=== PATIENT | male | born 1950 | race Caucasian/White ===

== ENCOUNTER 2018-02-25 08:35 | Emergency (ER) | payer SELFPAY ==
[2018-02-25 08:44] VITALS: BP 205/138
[2018-02-25] MEDS ORDERED: CLINDAMYCIN 150 MG CAP PO ONE (09:14)
--- NOTE | 2018-02-25 09:31 | EDPHY ---
H & P Time Seen by Provider: 02/25/18 08:54 HPI/ROS: CLINICAL IMPRESSION: Periapical abscess, left upper teeth ASSESSMENT/PLAN: 67-YEAR-OLD male presents to the emergency department with 1 day of left cheek swelling associated with left upper dental pain. Patient has been symptomatic with dental pain for 3-4 days. No drooling, tongue swelling, dysphagia, shortness of breath, neck swelling. No clinical signs to suggest Octavio's angina, ANUG, gingival buccal abscess, facial cellulitis or facial abscess. Patient was started on oral clindamycin and encouraged to call dental 8 for follow-up appointment. Vital signs stable, afebrile, warning signs return to ED sooner alignment discharge. DIFFERENTIAL DX: Differential includes but not limited to gingival buccal abscess, facial cellulitis, facial abscess, periapical abscess, parotitis ED PROCEDURES: See lab and/or imaging results below Patient refused dental block CHIEF COMPLAINT: Left upper dental pain and left facial swelling HPI: 67-year-old male presents to the emergency department with 24 hr of left cheek and face swelling associated with 3 days of left upper dental pain. No reported dental trauma or broken teeth. Patient has not seen a dentist nor does he have a dentist. He is tolerating secretions well and has been able to stay well-hydrated. No neck swelling or difficulty swallowing. No history of previous cellulitis or abscess and no history of MRSA. Pain and swelling are not exacerbated by eating. No ocular involvement or vision changes. No reported fevers, chills, myalgias, nausea, vomiting. PAST MEDICAL HISTORY: None reported See triage summary and nurse notes for addition applicable history Pertinent Past Surgical History: None reported Family History: Noncontributory Social History: Daily smoker REVIEW OF SYSTEMS: A full 10 point review of systems was negative except for those mentioned in HPI. PHYSICAL EXAM: General Appearance: Alert, oriented, appropriate, cooperative, NAD, well hydrated, non-toxic appearing, VSS, no hypoxia. HEENT: TMs are clear bilaterally no perforation or FB, no injection, no evidence of serous or mucopurulent otitis. Oropharynx clear is no erythema or exudates, no tonsillar hypertrophy or asymmetry. Dental caries noted throughout , pain to palpation along the gingiva of the entire left upper maxilla. No fluctuance or drainable fluid collection. No evidence of ANUG, gingival buccal abscess. Swelling noted to left cheek associated with mild erythema. No warmth or fluctuance. No clinical signs of parotitis. Swelling does not extend below the mandible and there is no submental inflammation or suggestion of Octavio's angina. Neck: Supple, nontender, no lymphadenopathy, no midline pain, FROM, no meningismus. Respiratory: There are no retractions, lungs are clear to auscultation. Cardiac: Regular rate and rhythm, no murmurs or gallops. Skin: Warm, dry, no rashes, no nodules on palpation. MEDICAL DECISION MAKING: Patient was seen independently. Secondary supervising physician at time of evaluation was: Dr. Oviedo Diagnosis: Left upper dental periapical abscess, left facial swelling . New, requires workup Summary: See Assessment and Plan for summary of ED visit Clinical lab tests: Not obtained. Independent visualization of images, tracing, or specimens: Not obtained. Patient Progress: Stable. Smoking Status: Current every day smoker Constitutional: Initial Vital Signs Temperature (C) 36.6 C 02/25/18 08:41 Heart Rate 76 02/25/18 08:41 Respiratory Rate 18 02/25/18 08:41 Blood Pressure 205/138 H 02/25/18 08:41 O2 Sat (%) 94 02/25/18 08:41 O2 Delivery Mode Room Air Allergies/Adverse Reactions: No Known Allergies Allergy (Unverified 02/25/18 08:41) Home Medications: Medication Instructions Recorded Clindamycin 300 mg PO Q6 #28 cap 02/25/18 MDM/Departure - MDM Medications Given: Discontinued Medications Clindamycin (Clindamycin) 300 mg PO EDNOW ONE PRN Reason: Protocol Stop: 02/25/18 09:15 Last Admin: 02/25/18 09:19 Dose: 300 mg - Depart Disposition: Home, Routine, Self-Care Clinical Impression: Periapical abscess, Dentalgia Condition: Fair Instructions: Clindamycin (By mouth), Dental Abscess (ED) Additional Instructions: DISCHARGE INSTRUCTIONS FROM YOUR DOCTOR Thank you for visiting our emergency department today. Please keep in mind that discharge from the emergency department does not mean that there is nothing wrong - it simply means that we have not identified an emergency condition that requires further evaluation or treatment in the hospital. You should always plan to follow up with primary care for re-evaluation of your condition in the next 2-3 days. If you have been referred to a specialist, please call as soon as possible (today or tomorrow) to schedule your follow up appointment at the appropriate time. YOUR FACE IS LIKELY SWOLLEN REACTION TO A DENTAL ABSCESS. HE WILL NEED TO VISIT A DENTIST SOON POSSIBLE. YOU CAN CONTACT THE [facility] EMERGENCY NUMBER AT [phone] AND THEY CAN HELP ARRANGE A NEXT DAY APPOINTMENT. PLEASE LET THEM KNOW YOU WERE IN THE EMERGENCY DEPARTMENT. PLEASE FOLLOW UP WITH A PRIMARY CARE PROVIDER. IF YOU DO NOT HAVE ONE A REFERRAL WAS GIVEN. ANTIBIOTICS WERE PRESCRIBED. PLEASE TAKE PICTURES OF YOUR FACE TO MONITOR SWELLING AND REDNESS. RETURN TO THE EMERGENCY DEPARTMENT IMMEDIATELY FOR INCREASED FACIAL PAIN, SIGNIFICANT FACIAL SWELLING, WARMTH TO THE FACE, FEVERS GREATER THAN 100.4, NAUSEA, VOMITING, FEVERS, TROUBLE EATING, TONGUE SWELLING OR NECK SWELLING, OR ANY OTHER CONCERNS. People present with illnesses and injuries in different ways, and it is always possible that we have missed something. You may always return for re-evaluation if symptoms worsen or if they are not improving or if you develop new/different symptoms. Again, thank you for choosing our emergency department. We hope that you feel better. Prescriptions: Clindamycin 300 mg PO Q6 #28 cap Referrals: NONE *PRIMARY CARE P,. [Primary Care Provider] - As per Instructions [facility],. [Clinic] - As per Instructions
== END 2018-02-25 09:37 | disposition home or self-care (01) ==
DX: K04.7 Periapical abscess without sinus (principal)

== ENCOUNTER 2018-03-08 07:08 | Emergency (ER) | payer OTHER ==
--- NOTE | 2018-03-08 07:33 | EDPHY ---
H & P Time Seen by Provider: 03/08/18 07:33 HPI/ROS: Chief complaint. Cough, shortness of breath HPI. 67-year-old male presents emergency department with complaint of cough and shortness of breath. He has been sick for about 2 days. Cough is productive dark yellow sputum. Maybe he has had some subjective fever he says. Slight dyspnea on exertion. He says he is better today and 2 days ago he seemed to be quite a bit worse. No history of lung problems though the patient has been lifelong smoker. No abdominal pain. Slight dry heaves yesterday with cough. Mild chest tightness across the anterior chest especially with cough. No unusual leg problem sore swelling. No known exposure or recent travel ROS 10 systems were reviewed and negative with the exception of the elements mentioned in the history of present illness Past Medical/Surgical History: Denies Social History: Single, daily smoker, no alcohol Smoking Status: Current every day smoker Physical Exam: General Appearance: Alert well-developed male mild distress vital signs show normal temperature. Heart rate initially 108. 87% pulse ox room air Eyes: Pupils equal and round no pallor or injection. ENT, tympanic membranes normal. Pharynx without injection. Mucous membranes are moist Respiratory: No retractions. Mild inspiratory expiratory rhonchi Cardiovascular: Regular rate and rhythm. Gastrointestinal: Abdomen is soft and nontender, no masses, bowel sounds normal. Neurological: Awake and alert, sensory and motor exams grossly normal. Skin: Warm and dry, no rashes. Musculoskeletal: Neck is supple nontender. Extremities symmetrical, full range of motion. Psychiatric: Patient is oriented X 3, there is no agitation. Constitutional: Initial Vital Signs Temperature (C) 36.4 C 03/08/18 07:11 Heart Rate 108 H 03/08/18 07:11 Respiratory Rate 22 H 03/08/18 07:11 Blood Pressure 152/85 H 03/08/18 07:11 O2 Sat (%) 87 L 03/08/18 07:11 O2 Delivery Mode Room Air Allergies/Adverse Reactions: No Known Allergies Allergy (Verified 03/08/18 07:11) Home Medications: Medication Instructions Recorded Albuterol Hfa Anes Only [Proair 2 puffs IH QID PRN #1 mdi 03/08/18 Hfa Icu (*)] Azithromycin [Zithromax] 250 mg PO DAILY #6 tab 03/08/18 predniSONE 40 mg PO DAILY #8 tablet 03/08/18 Medical Decision Making - Diagnostics Imaging Results: Chest x-ray interpreted by me consistent with bronchitis and COPD. No evidence for pneumonia Procedures: DuoNeb updraft Prednisone 60 mg orally ED Course/Re-evaluation: Re-evaluation at 8:30 a.m.. Patient is stable. Feeling better after updraft. Decreased rhonchi. Speaking in full sentences. Heart rate now about 90. Pulse oximetry 89-90% on room air Differential Diagnosis: I believe the patient has COPD and has an exacerbation of his COPD. Pulse oximetry is on the low side but I suspect that this is baseline for the patient. I did consider sepsis but the patient really does not appear ill. I also considered pneumonia. - Data Points Medications Given: Discontinued Medications Albuterol/Ipratropium (Duoneb) 3 ml IH EDNOW ONE Stop: 03/08/18 07:40 Last Admin: 03/08/18 07:42 Dose: 3 ml Departure - Departure Disposition: Home, Routine, Self-Care Clinical Impression: Chronic obstructive pulmonary disease with acute exacerbation Condition: Good Instructions: COPD (Chronic Obstructive Pulmonary Disease) (ED) Additional Instructions: Drink plenty of fluids and stay hydrated. Prednisone daily next 4 days beginning tomorrow as we gave you year 1st dose in the emergency department Zithromax as antibiotic Albuterol inhaler using 2 puffs every 4-6 hours to help open up her lungs. Return for worsening symptoms. Re-evaluation at [facility] in 2-3 days if not improved Referrals: NONE *PRIMARY CARE P,. [Primary Care Provider] - As per Instructions [facility] [Outside] - 2-3 days, if not improved Prescriptions: Albuterol Hfa Anes Only [Proair Hfa Icu (*)] 2 puffs IH QID PRN #1 mdi PRN Reason: Short Of Breath/Dyspnea Azithromycin [Zithromax] 250 mg PO DAILY #6 tab predniSONE 40 mg PO DAILY #8 tablet
[2018-03-08] MEDS ORDERED: IPRATROPIUM/ALBUTEROL 3 ML DEYVIAL IH ONE (07:39)
[2018-03-08] MEDS ORDERED: predniSONE 20 MG TAB PO ONE (08:35)
[2018-03-08 08:49] VITALS: BP 147/89
== END 2018-03-08 08:52 | disposition home or self-care (01) ==
DX: J44.9 Chronic obstructive pulmonary disease, unspecified (principal)
CPT/HCPCS: J7512